=== PATIENT | female | born 1940 | race Two or more races ===

== ENCOUNTER 2018-08-22 09:34 | Outpatient (CLI) | payer OTHER ==
[~2018-08-22 09:34] MED LIST: BENAZEPRIL HCL5 MG; DICLOFENAC SODI50 MG PO; NORFLEX100MG PO
== END 2018-08-22 15:03 | disposition home or self-care (01) ==
LOC: MRI 09:34
DX: M23.200 Derangement of unspecified lateral meniscus due to old tear or injury, right knee (principal)
CPT/HCPCS: 73721

== ENCOUNTER 2019-05-24 11:59 | Outpatient (CLI) | payer OTHER | END 2019-05-24 12:05 | disposition home or self-care (01) | LOC: LAB 11:59 | DX: N30.00 Acute cystitis without hematuria (principal) ==